=== PATIENT | female | born 2000 | race Caucasian/White ===

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

== ENCOUNTER 2022-01-01 18:15 | Outpatient (CLI) | payer MEDICAID ==
[~2022-01-01] VITALS: Ht 162.6 cm; Wt 83.6 kg
[~2022-01-01 18:15] MED LIST: AMOXICILLIN 8751 TAB PO; ASPIRIN 81M81 MG/TA2 PO; GLUCOPHAGE XR500 M1 PO; PRENATAL TABLET PO
--- NOTE | 2022-01-01 18:30 | NUR ---
PT TO THE UNIT AMBULATORY WITH COMPLAINTS OF CTX THAT BEGAN AROUND 1200 TODAY. PT ORIENTED TO ROOM, CHANGED INTO GOWN, EFMX2 APPLIED, VS OBTAINED.
[2022-01-01 19:00] VITALS: BP 118/70; PULSE 83; TEMP 98
[2022-01-01 20:17] LABS: COLLECTION METHOD CLEAN CATCH
[2022-01-01 20:33] LABS: PH 7 (5-8); URINE APPEARANCE Hazy (CLEAR/HAZY); URINE BACTERIA Rare /hpf (NONE SEEN); URINE BILIRUBIN Negative (NEGATIVE); URINE BLOOD Negative (NEGATIVE); URINE COLOR Colorless (YELLOW); URINE GLUCOSE Negative (NEGATIVE); URINE KETONE Trace (NEGATIVE); URINE LEUKOCYTE ESTERASE Negative (NEGATIVE); URINE NITRATE Negative (NEGATIVE); URINE PROTEIN(semi-quant) Negative (NEGATIVE); URINE RBC None Seen /hpf (0-2); URINE UROBILINOGEN Negative (NEGATIVE); URINE WBC None Seen /hpf (0-2)
[2022-01-01 21:00] VITALS: BP 102/68; PULSE 103
--- NOTE | 2022-01-01 21:18 | NUR ---
MONITORING DC'D AT THIS TIME. PT MAY DC HOME PER DR. MARTINEZ.
[2022-01-01] MEDS ORDERED: NATURAL MAGNES200 MG PO (21:29)
[2022-01-01] MEDS ORDERED: K-TAB10 PO (21:30)
--- NOTE | 2022-01-01 21:40 | NUR ---
DISCHARGE INSTRUCTIONS REVIEWED WITH PT AND SPOUSE, QUESTIONS ENCOURAGED AND ANSWERED, UNDERSTANDING VERBALIZED. PT OFF THE UNIT AMBULATORY FOR HOME.
== END 2022-01-01 21:40 | disposition home or self-care (01) ==
LOC: LDRO 18:15
PROVIDERS: Obstetrics & Gynecology
DX: O47.03 False labor before 37 completed weeks of gestation, third trimester (principal); Z3A.34 34 weeks gestation of pregnancy
CPT/HCPCS: J3105; J7120

== ENCOUNTER 2022-01-27 18:59 | Outpatient (CLI) | payer MEDICAID ==
[~2022-01-27] VITALS: Ht 160 cm; Wt 84.3 kg
[~2022-01-27 18:59] MED LIST changes: +K-TAB10 PO; +NATURAL MAGNES200 MG PO
--- NOTE | 2022-01-27 19:15 | NUR ---
PATIENT SEEN IN OB TRIAGE COMPLAINING OF CONTRACTIONS Q5MIN FOR 4 HOURS. UNSURE IF SROM. DENIES VB OR DFM. VSS. FHT REACTIVE AND REASSURING WITH IRREGULAR MILD CONTRACTIONS NOTED ON MONITOR AND PALPATION. PATIENT DENIES TAKING ANYTHING FOR PAIN AND CLAIMS TO HAVE NOT HAD MUCH WATER TO DRINK TODAY. SVE PERFORMED AND CLOSED. AMNIOSWAB NEGATIVE; POOLING NEGATIVE. PATIENT INSTRUCTED TO DRINK TWO LARGE GLASSES OF WATER BEFORE SVE RECHECK IN 1 HOUR. PATIENT VERBALIZES UNDERSTANDING. WILL CONTINUE TO MONITOR.
[2022-01-27 19:30] VITALS: BP 115/62; PULSE 94; TEMP 98.2
--- NOTE | 2022-01-27 20:25 | NUR ---
SVE RECHECK PERFORMED AND UNCHANGED FROM PREVIOUS EXAM. PATIENT STATES SHE FEELS LIKES CONTRACTIONS ARE SPACING OUT. FHT REACTIVE AND REASSURING. DR. HUERTA CALLED AT 2019 AND GIVES ORDER FOR PATIENT TO DISCHARGE WITH LABOR PRECAUTIONS. PATIENT COMFORTABLE GOING HOME AND VERBALIZES UNDERSTANDING OF DISCHARGE TEACHING. PATIENT AMBULATORY OFF THE UNIT AT 2044 IN STABLE CONDITION.
== END 2022-01-27 20:45 ==
LOC: LDRO 18:59
DX: Z34.93 Encounter for supervision of normal pregnancy, unspecified, third trimester (principal); Z3A.37 37 weeks gestation of pregnancy

== ENCOUNTER 2022-02-01 18:21 | Inpatient (IN) | payer MEDICAID ==
[~2022-02-01] VITALS: Ht 165.1 cm; Wt 84.1 kg
[2022-02-06] VITALS (7 sets, daily range): BP systolic 102–113; BP diastolic 64–69; PULSE 78–90; TEMP 98–98.2
[2022-02-06 20:16] LABS: BASO % 0.2 % (0.0-2.0); EOS # 0.1 K/mm3 (0.0-0.7); EOS % 0.7 % (0.0-4.0); GRAN # 7.2 K/mm3 (1.4-6.5); GRAN % 73.8 % (42.2-75.2); HEMATOCRIT 39.7 % (35.0-45.0); HEMOGLOBIN 13.8 g/dl (12.0-15.0); LYMPH # 1.8 K/mm3 (1.2-3.4); LYMPH % 18.5 % (20.0-51.0); MEAN CELL VOLUME 87 fl (80.0-95.0); MEAN CORPUSCULAR HEMOGLOBIN 30 pg (26-32); MEAN CORPUSCULAR HGB CONC 35 g/dl (33.0-37.0); MONO # 0.6 K/mm3 (0.1-0.6); MONO % 6.2 % (1.7-9.3); PLATELET COUNT 159 K/mm3 (130-400); RED BLOOD COUNT 4.54 M/mm3 (4.10-5.30); REDCELL DISTRIBUTION WIDTH-CV 13.9 % (11.5-14.5)
--- NOTE | 2022-02-06 22:13 | NUR ---
@6774 DR. RINALDI AT THE BEDSIDE WITH US. VERTEX POSITIONED CONFIRMED.
[2022-02-07] VITALS (81 sets, daily range): BP systolic 92–151; BP diastolic 51–91; PULSE 56–100; TEMP 97.6–98.3
--- NOTE | 2022-02-07 00:18 | NUR ---
@2100 GAVE VERBEL ORDERS STATING THAT GLUCOSE LABS CAN BE HELD WHILE THE PATIENT IS SLEEPING.
--- NOTE | 2022-02-07 06:15 | NUR ---
0615 RECEIVED REPORT AT THIS TIME AT BEDSIDE. PT WHITEBOARD UPDATED. PLAN OF CARE UPDATED AND BLOOD SUGAR CHECK COMPLETED AT THIS TIME. PT STANDING UP AT SIDE OF BED.
--- NOTE | 2022-02-07 08:15 | NUR ---
0815: DR. HUERTA AT BEDSIDE FOR SVE. SVE CLOSED POSTERIOR. DISCUSSED POC AND OPTIONS. PT AND PHYSICIAN IN AGREEANCE TO PLACE A CERVICAL RIPENING BALLOON. [id number]: [email or web address] CERVICAL RIPENING BALLOON PLACED USING STERILE TECHNIQUE PER AT THIS TIME. 80CC NS PLACED IN UTERINE BALLOON, 80CC NS PLACED IN VAGINAL BALLOON. PT TOLERATED PROCEDURE WELL. TENSION APPLIED TO LEFT THIGH. WILL CONTINUE TO APPLY TENSION TO CATHETER PER PROTOCOL.
--- NOTE | 2022-02-07 09:38 | NUR ---
0938 CALLED LUZ PIERSON FOR EPIDURAL PLACEMENT AT PT REQUEST.
--- NOTE | 2022-02-07 10:07 | NUR ---
1007 THIS RN AT BEDSIDE, LR BOLUS RUNNING AT THIS TIME, PULSE OX ON. 1010 PT SITTING UP ON SIDE OF BED. UNABLE TO TRACE EFM DUE TO MATERNAL POSITION. EFM TRACING CATEGORY 1 BEFORE POSITION CHANGE. 1015 FARRAH HERNÁNDEZ AND LUZ PIERSON AT BEDSIDE FOR EPIDURAL PLACEMENT. 1031 SINGLE SHOT DONE. VITALS STABLE. PT TOLERATING WELL.
--- NOTE | 2022-02-07 17:22 | NUR ---
AT BEDSIDE. TENSION APPLIED PER PHYSICIAN TO COOK BALLOON. UNABLE TO RELEACE.REMAINS IN PLACE AT THIS TIME. EDUCATED THAT PHYSICIAN WILL RETURN AT 2030 (THE 12 HOUR YOGESH SINCE PLACING THE COOK CATHETER) TO REASSESS AND DECIDE HOW TO PROCEED WITH LABOR PROCESS. PT DENIES QUESTIONS OR CONCERNS AT THIS TIME. AGREEABLE TO POC.
--- NOTE | 2022-02-07 19:50 | NUR ---
pericare with bloody show noted on chux, no clots. Pressure applied to Gautam marie bulb tubing with no give. To R side with peanut ball.
--- NOTE | 2022-02-07 20:20 | NUR ---
Dr Prince into room, Gautam bulb removed, SVE as noted. [address] Prince, clear fluid. SVE after AROM 5.
--- NOTE | 2022-02-07 23:05 | NUR ---
Pt reports "my L hip is starting to hurt" To wedge L and encouraged to push Epidural POULTRY HUSBANDRY TEACHER button.
[2022-02-08] VITALS (47 sets, daily range): BP systolic 104–147; BP diastolic 58–99; PULSE 61–142; TEMP 97.4–99.7
--- NOTE | 2022-02-08 00:10 | NUR ---
Pt reports "my R hip hurts" To WR
--- NOTE | 2022-02-08 00:55 | NUR ---
Pt's blood pressure rising, denies pain @ this time. Pt reports but "I'm itching all over" no rash noted. Benadryl 25mg IV given. Encouraged to rest.
--- NOTE | 2022-02-08 02:25 | NUR ---
sve unchanged, increased bloody show. To LL with peanut ball. Temp 99.3. Pitocin gtt to 18mu
--- NOTE | 2022-02-08 03:10 | NUR ---
Pt requests position change, stating "when I lay on my L side my R hip hurts"
--- NOTE | 2022-02-08 05:45 | NUR ---
Pt crying, reporting continues hip pain. Have tried ice and heat. Benadryl 25mg IV to help pt relax. Epidural pump ready for refill, anesthesia notified.
--- NOTE | 2022-02-08 06:27 | NUR ---
0627 DR. HUERTA AT BEDSIDE FOR SVE OF /+1. PT COMFORTABLE AND UPDATED ON POC. WILL CONTINUE TO MONITOR.
--- NOTE | 2022-02-08 08:38 | NUR ---
0838 DR. HUERTA AT BEDSIDE FOR SVE. PT COMPLETE +2 STATION. 0850 STARTED PUSHING WITH PT. PT TOLERATED WELL. 0910 JET HUERTA CALLED FOR DELIVERY.
--- NOTE | 2022-02-08 09:16 | NUR ---
0913 DR. HUERTA AT BEDSIDE. GOOD MATERNAL PUSHING EFFORTS. 0916 DELIVERY OF VIABLE FEMALE INFANTS HEAD FOLLOWED BY BODY ATTENDED BY DR. HUERTA. INFANT TO MOTHERS ABDOMEN, CARE OF INFANT ASSUMED BY TEMI MONTEMAYOR. APGARS 8,9,9. 0920 SPONTANEOUS DELIVERY OF PLACENTA. PITOCIN BOLUS STARTED AT 333MLS PER HOUR. FUNDAL MASSAGE BY RN, SLIGHTLY BOGGY BUT FIRMED UP WITH MASSAGE. 2ND DEGREE TEAR REPAIRED BY AT THIS TIME. 0936 IM METHERGINE 0.2MG GIVEN AFTER VORB FROM DR. HUERTA. PT VAGINAL BLEEDING WNL. FUNDUS FIRM. PERICARE COMPLETED, ICE PACK PAD PLACED ON PERINEUM. PT COMFORTABLE IN BED AT THIS TIME. VITAL SIGNS STABLE.
[2022-02-08] MEDS ORDERED: IBU800 M1 PO (10:03)
[2022-02-08 14:18] LABS: HEMOGLOBIN 11.4 g/dl (12.0-15.0)
--- NOTE | 2022-02-08 15:30 | NUR ---
1530 PT UP WITH STANDBY ASSIST TO SIDE OF BED. PERICARE DONE. ASSISTED TO CHANGE OF CLOTHES. STABLE ON FEET. TAKEN TO ROOM VIA WHEELCHAIR. INSTRUCTED ON SAFETY AND ROOM ORIENTATION. ELDRIDGE DRAINING CLEAR YELLOW URINE AT THIS TIME. WILL CONTINUE TO MONITOR.
--- NOTE | 2022-02-09 02:48 | NUR ---
PATIENT OFFERED SCHEDULED PAIN MEDICATION AND REFUSED STATING "I'M FINE". PATIENT ALERT STANDING WHILE HER BABY UPON ROUNDING. BURP CLOTHES AND BLANKETS WERE PROVIDED TO PATIENT.
[2022-02-09 06:33] LABS: HEMOGLOBIN 10.7 g/dl (12.0-15.0)
[2022-02-09 07:15] VITALS: BP 94/53; PULSE 90; TEMP 98.8
--- NOTE | 2022-02-09 10:15 | NUR ---
RYNE PER ROLES TO PATRICIA ELDRIDGE. PT MAY DC THIS EVENING IF IS DC'D BY CAN BANDER OPERATOR AND PT IS ABLE TO VOID X3 TIMES.
[2022-02-09 12:39] VITALS: BP 127/61; PULSE 91; TEMP 98
--- NOTE | 2022-02-09 15:25 | NUR ---
ALL DC PAPERWORK REVIEWED AND UNDERSTOOD. PT VOIDING WITHOUT DIFFICULTY, CLEAR YELLOW URINE. SWELLING TO LABIA DECREASED. SCANT LOCHIA AND FUNDUS FIRM 2FB BELOW UMBILICUS. ALL BELONGINGS ACCOUNTED FOR. INFANT PLACED SAFELY AND SECURELY IN CARSEAT. PT AND FAMILY AMBULATORY FROM UNIT IN STABLE CONDITION.
== END 2022-02-09 15:25 | disposition home or self-care (01) | DRG 806 ==
LOC: LDR 02-05 10:20 → OB 02-08 17:37
PROVIDERS: ADMIT Obstetrics & Gynecology
PROC: 0U7C7ZZ Dilation of Cervix, Via Natural or Artificial Opening (ICD-10-PCS; 2022-02-07)
PROC: 3E0P7VZ Introduction of Hormone into Female Reproductive, Via Natural or Artificial Opening (ICD-10-PCS; 2022-02-07)
PROC: 3E033VJ Introduction of Other Hormone into Peripheral Vein, Percutaneous Approach (ICD-10-PCS; 2022-02-07)
PROC: 10E0XZZ Delivery of Products of Conception, External Approach (ICD-10-PCS; principal; 2022-02-08)
PROC: 0KQM0ZZ Repair Perineum Muscle, Open Approach (ICD-10-PCS; 2022-02-08)
PROC: 10907ZC Drainage of Amniotic Fluid, Therapeutic from Products of Conception, Via Natural or Artificial Opening (ICD-10-PCS; 2022-02-08)
DX: O24.425 Gestational diabetes mellitus in childbirth, controlled by oral hypoglycemic drugs (principal); O98.52 Other viral diseases complicating childbirth; Z37.0 Single live birth; O72.1 Other immediate postpartum hemorrhage; O34.40 Maternal care for other abnormalities of cervix, unspecified trimester; O99.344 Other mental disorders complicating childbirth; F41.9 Anxiety disorder, unspecified; F32.A Depression, unspecified; O99.892 Other specified diseases and conditions complicating childbirth; H66.92 Otitis media, unspecified, left ear; B06.9 Rubella without complication; O70.1 Second degree perineal laceration during delivery; Z3A.39 39 weeks gestation of pregnancy; Z86.16 Personal history of COVID-19
CPT/HCPCS: J1200; J2210; J2590; J7120

== ENCOUNTER → 2022-02-12 | Outpatient (CLI) | payer MEDICAID ==
[~2022-02-12] MED LIST changes: +IBU800 M1 PO
--- NOTE | 2022-02-12 14:16 | NUR ---
Pt, Isma Wesley, present to walk-in clinic with 4 day old baby girl, Liz Wesley. Pt c/o sore, bleeding, scabbed nipples. Liz was born on [birth year] by and weighed 7# 13.6oz (3560 gms). Pt started pumping 1.5 days ago because of the sore nipples. She provides Liz 1-2oz EBM as collected. Pt states Liz has about 4 voids per day, observed here urine was dark in color but volume was WNL. Her last stool was 48+ hours ago and was meconium. She also states her milk supply started to increase in the last 24 hours. Today Liz weighs 7# 5.4oz (3328 gms). She is observed to be moderately jaundice extending to her abdomen and legs. Pt states Liz was seen by Dr. Light this morning and she was advised to place her in a deepali window and feed her more, and there was not concern about lack of stool. Compression wound noted on nipples bilaterally and on the left a wound at the nipple-areola junction that pt states is from the pump being off centered. assists, and teaches pt cross cradle latching technique to get a deeper latch. Pt states she feels this latch is quite a bit more comfortable. After nursing there is a soft scab that has lifted but the nipple is round and better post feed appearance than she has seen in the past. The softened scab is wiped away, some remains attached. She is also instructed on football hold, she feels this is comfortable too. After both sides Liz has a weight gain of 2.1oz (58 gms). RX for Pennington's Nipple cream requested from Dr. Prince, sent to [facility] pharmacy. POC: Continue 8 or more times per 24 hours using techniques shown today. If unable to wake well enough for feeding, pump and bottle feed. F/U: [facility] if Liz does not have a stool in the next 24 hours, and if she appears more jaundice. Walk in clinic as needed.
== END ==
LOC: LAC 13:40
DX: Z39.1 Encounter for care and examination of lactating mother (principal)

== ENCOUNTER 2024-03-11 14:20 | Emergency (ER) | payer MEDICAID ==
[~2024-03-11] VITALS: Ht 162.6 cm; Wt 65.9 kg
[2024-03-11 14:23] VITALS: TEMP 98.5
[2024-03-11 14:55] LABS: BASO % 0.1 % (0.0-2.0); EOS % 0.5 % (0.0-4.0); GRAN # 4.5 K/mm3 (1.4-6.5); GRAN % 61.1 % (42.2-75.2); HEMATOCRIT 42.4 % (37.0-47.0); HEMOGLOBIN 14.6 g/dl (12.5-16.0); LYMPH # 2.5 K/mm3 (1.2-3.4); LYMPH % 34.3 % (20.0-51.0); MEAN CELL VOLUME 86 fl (80.0-100.0); MEAN CORPUSCULAR HEMOGLOBIN 30 pg (27-31); MEAN CORPUSCULAR HGB CONC 34 g/dl (33.0-37.0); MEAN PLATELET VOLUME 9.6 fl (7.4-10.4); MONO # 0.3 K/mm3 (0.1-0.6); MONO % 3.9 % (1.7-9.3); PLATELET COUNT 210 K/mm3 (130-400); RED BLOOD COUNT 4.91 M/mm3 (4.10-5.30); REDCELL DISTRIBUTION WIDTH-CV 11.8 % (11.5-14.5)
[2024-03-11 14:58] LABS: COLLECTION METHOD CLEAN CATCH
[2024-03-11 15:01] LABS: PH 6.5 (5.0-8.5); URINE APPEARANCE CLEAR (CLEAR/HAZY); URINE BLOOD NEGATIVE (NEGATIVE); URINE COLOR YELLOW (YELLOW); URINE GLUCOSE NEGATIVE (NEGATIVE); URINE KETONE NEGATIVE (NEGATIVE); URINE NITRATE NEGATIVE (NEGATIVE); URINE PROTEIN(semi-quant) NEGATIVE (NEGATIVE); URINE UROBILINOGEN 0.2 E.U/dL (0.2-1.0)
[2024-03-11 15:14] LABS: ALBUMIN 4.2 g/dL (3.5-5.0); BILIRUBIN,TOTAL 0.7 mg/dL (0.2-1.2); CALCIUM 9.1 mg/dL (8.4-10.2); CREATININE, serum 0.77 mg/dL (0.57-1.11); MAGNESIUM 1.7 mg/dL (1.6-2.6); POTASSIUM 3.7 mEq/L (3.5-4.5); TOTAL PROTEIN 6.7 g/dl (6.2-8.1)
[2024-03-11 15:47] LABS: TSH w REFLEX 1.292 uIU/mL (0.350-4.940)
[2024-03-11 16:45] VITALS: BP 102/70; PULSE 53
== END 2024-03-11 16:49 | disposition home or self-care (01) ==
LOC: COL.ER 14:20
PROVIDERS: Emergency Medicine
DX: R55 Syncope and collapse (principal)

== ENCOUNTER → 2024-03-18 | Outpatient (CLI) | payer MEDICAID | LOC: COL.RAD 15:12 | DX: R22.31 Localized swelling, mass and lump, right upper limb (principal) ==

== ENCOUNTER 2024-03-31 23:47 | Emergency (ER) | payer MEDICAID ==
[~2024-03-31] VITALS: Ht 162.6 cm; Wt 63.6 kg
[~2024-03-31 23:47] MED LIST changes: +NS 1,000 ML IV ONE
[2024-03-31 23:48] VITALS: TEMP 98.8
[2024-04-01 00:24] LABS: COLLECTION METHOD CLEAN CATCH
[2024-04-01 00:29] LABS: BASO % 0.1 % (0.0-2.0); EOS # 0.1 K/mm3 (0.0-0.7); GRAN # 3.4 K/mm3 (1.4-6.5); GRAN % 48.6 % (42.2-75.2); HEMATOCRIT 41.3 % (37.0-47.0); HEMOGLOBIN 14.4 g/dl (12.5-16.0); LYMPH # 3.2 K/mm3 (1.2-3.4); LYMPH % 45.6 % (20.0-51.0); MEAN CELL VOLUME 87 fl (80.0-100.0); MEAN CORPUSCULAR HEMOGLOBIN 30 pg (27-31); MEAN CORPUSCULAR HGB CONC 35 g/dl (33.0-37.0); MEAN PLATELET VOLUME 9.5 fl (7.4-10.4); MONO # 0.3 K/mm3 (0.1-0.6); MONO % 4.4 % (1.7-9.3); PLATELET COUNT 222 K/mm3 (130-400); RED BLOOD COUNT 4.74 M/mm3 (4.10-5.30); REDCELL DISTRIBUTION WIDTH-CV 12.2 % (11.5-14.5)
[2024-04-01 00:41] LABS: PH 7.5 (5.0-8.5); URINE APPEARANCE CLEAR (CLEAR/HAZY); URINE BLOOD NEGATIVE (NEGATIVE); URINE COLOR YELLOW (YELLOW); URINE GLUCOSE NEGATIVE (NEGATIVE); URINE KETONE NEGATIVE (NEGATIVE); URINE NITRATE NEGATIVE (NEGATIVE); URINE PROTEIN(semi-quant) NEGATIVE (NEGATIVE); URINE UROBILINOGEN 0.2 E.U/dL (0.2-1.0)
[2024-04-01 00:47] LABS: ALANINE AMINOTRANSFERASE 11 U/L (0-55); ALBUMIN 4.1 g/dL (3.5-5.0); ALKALINE PHOSPHATASE 39 U/L (40-150); ANION GAP 11 mmol/L (7-16); AST,SGOT 16 U/L (5-34); BILIRUBIN,TOTAL 0.5 mg/dL (0.2-1.2); BLOOD UREA NITROGEN 11 mg/dL (7-19); CALCIUM 9.5 mg/dL (8.4-10.2); CHLORIDE 111 mEq/L (98-107); CREATININE, serum 0.81 mg/dL (0.57-1.11); GLUCOSE 93 mg/dL (70-99); POTASSIUM 3.6 mEq/L (3.5-4.5); SODIUM 143 mEq/L (136-145); TOTAL PROTEIN 6.8 g/dl (6.2-8.1)
[2024-04-01 01:17] LABS: TROPONIN-I < 0.010 ng/mL (0.00-0.033)
[2024-04-01 01:54] LABS: LIPASE 36 U/L (8-78)
[2024-04-01 02:20] VITALS: BP 105/65; PULSE 67
== END 2024-04-01 02:20 | disposition home or self-care (01) ==
LOC: COL.ER 23:47
PROVIDERS: Emergency Medicine
DX: R56.9 Unspecified convulsions (principal)
CPT/HCPCS: J7030

== ENCOUNTER 2024-04-11 10:14 | Emergency (ER) | payer MEDICAID ==
[~2024-04-11] VITALS: Ht 162.6 cm; Wt 63.6 kg
[~2024-04-11 10:14] MED LIST changes: -NS 1,000 ML IV ONE
[2024-04-11 10:20] VITALS: BP 104/59; PULSE 70; TEMP 98
== END 2024-04-11 11:05 | disposition left against medical advice (07) ==
LOC: COL.ER 10:14
DX: M25.572 Pain in left ankle and joints of left foot (principal)